=== PATIENT | female | born 1955 | race American Indian/Alaskan Native ===

== ENCOUNTER 2021-08-05 14:02 | Outpatient (CLI) | payer MEDICARE ==
--- NOTE | 2021-08-05 15:00 | XRay Report ---
RIGHT SHOULDER 3 VIEWS INDICATION: ADHESIVE CAPSULITISOF RIGHT SHOULDER. COMPARISON: None. IMPRESSION: No acute osseous or soft tissue abnormality. 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 CHEST 2 VIEWS INDICATION: Abnormal weight loss. COMPARISON: None FINDINGS: Support devices: None. Heart: Within normal limits. Lungs/pleura: No acute air space or interstitial disease. No pneumothorax. Additional findings: None. IMPRESSION: Unremarkable chest films. Signer Name: Michael Gibson Jr, MD Signed: 08/05/2021 2:55 PM Workstation Name: [id number]
== END 2021-08-05 14:03 | disposition home or self-care (01) ==
LOC: XRAY 14:02
PROVIDERS: ATTEND Internal Medicine
DX: M19.011 Primary osteoarthritis, right shoulder (principal); M75.01 Adhesive capsulitis of right shoulder; R63.4 Abnormal weight loss
CPT/HCPCS: 71046

== ENCOUNTER 2021-10-07 13:10 | Outpatient (CLI) | payer MEDICARE ==
--- NOTE | 2021-10-20 11:54 | Mammography Report ---
DIGITAL DIAGNOSTIC MAMMOGRAM WITH CAD , 10/07/2021 CLINICAL INFORMATION / INDICATION: Diagnostic mammogram performed for a history of abnormal right alcon mogram and right breast calcifications. The patient reports no new breast symptoms. TECHNIQUE: Digital bilateral mammographic imaging was performed. This examination was interpreted with the benefit of Computer-aided Detection analysis. COMPARISON: Right diagnostic mammogram, 10/25/2019 and screening mammogram, 10/10/2019 from [facility] in [place]. Interpretation of this study was held until prior mammograms could b e obtained for comparison. FINDINGS: Breast Density: There are scattered areas of fibroglandular density. No dominant mass, suspicious calcifications or architectural distortion in either breast. Few coarse calcifications throughout both breasts are again noted and have not significantly changed. Specifically, the calcifications seen in the superior aspect of the right breast are again noted and have not significantly changed. No new or suspicious mammographic finding is seen in either breast. IMPRESSION: No mammographic evidence of malignancy. Follow up recommendation: Routine yearly BI-RADS Category 2: BENIGN. A "normal" or negative report should not discourage follow up or biopsy of a clinically significant f inding. A written summary of these findings will be mailed to the patient. The patient will be entered into a mammography reporting system which will generate a reminder letter for the patient's next appointmen t at the appropriate interval. According to the [employer], yearly mammograms are recommended starting at age 40 and continuing as long as a woman is in good health. Breast MRI is recommended for women with an rivera roximately 20-25% or greater lifetime risk of breast cancer, including women with a strong family his tory of breast or ovarian cancer and women who have been treated for Hodgkin's disease. Signer Name: Neeta Agrawal MD Signed: 10/20/2021 11:50 AM Workstation Name: [email or web address]
== END 2021-10-07 13:11 | disposition home or self-care (01) ==
LOC: MAMMO 13:10
PROVIDERS: ATTEND Internal Medicine
DX: R92.1 Mammographic calcification found on diagnostic imaging of breast (principal)
CPT/HCPCS: 77066

== ENCOUNTER 2022-04-01 14:42 | Outpatient (CLI) | payer MEDICARE ==
[2022-04-01] MEDS ORDERED: ONDANSETRON 4 MG/2 ML INJ ONE (17:12)
[2022-04-01] MEDS ORDERED: HEPARIN/NS 5000 UNIT/500ML 500 ML IR ONE (17:15)
--- NOTE | 2022-04-01 17:42 | XRay Report ---
CHEST 2 VIEWS INDICATION / CLINICAL INFORMATION: E11.9 Z01.818. COMPARISON: None available. FINDINGS: SUPPORT DEVICES: None. HEART / MEDIASTINUM: No significant abnormality. LUNGS / PLEURA: No significant pulmonary or pleural abnormality. No pneumothorax. ADDITIONAL FINDINGS: No significant additional findings. IMPRESSION: 1. No acute findings. Signer Name: Shemar Tellez MD Signed: 04/01/2022 5:37 PM Workstation Name: [id number]
[2022-04-01] MEDS ORDERED: fentaNYL 100 MCG/2 ML INJ ONE (17:46)
[2022-04-01] MEDS ORDERED: CLOPIDOGREL 300 MG TAB ONE (17:47)
== END 2022-04-01 14:43 | disposition home or self-care (01) ==
LOC: XRAY 14:42
PROVIDERS: ATTEND Internal Medicine
DX: Z01.818 Encounter for other preprocedural examination (principal); E11.9 Type 2 diabetes mellitus without complications
CPT/HCPCS: 71046; J1644; J2405; J3010